=== PATIENT | female | born 1970 | race Caucasian/White ===

== ENCOUNTER 2017-01-25 16:18 | Observation (INO) ==
[2017-01-25] MEDS ORDERED: ZOFRAN IV PRN (16:58)
[2017-01-25] MEDS ORDERED: SODIUM CHLORIDE 0.9% INJ SCH (17:00)
[2017-01-25] MEDS ORDERED: PROTONIX IV SCH (17:00)
[2017-01-25] MEDS: D5 1/2 NS 1,000 ML IV SCH (18:33)
[2017-01-25 18:40] LABS: MANUAL DIFF NEEDED? NO
[2017-01-25 18:57] LABS: BASO% 0.4 % (0.0-0.8); EOS# 0.04 X1000 (0.0-0.7); EOS% 0.8 % (0.0-10.0); HEMATOCRIT 37.9 % (37.0-47.0); HEMOGLOBIN 12.7 g/dL (12.0-16.0); IMM GRAN# 0.02 X1000 (0.0-0.04); IMM GRAN% 0.4 % (0.0-0.5); LYMPH# 1.56 X1000 (1.2-3.4); LYMPH% 32.6 % (20.5-51.1); MCH 30.8 PG (27-31); MCHC 33.5 g/dL (33-37); MCV 91.8 FL (81-99); MONO# 0.39 X1000 (0.11-0.59); MONO% 8.1 % (1.7-9.3); MPV 9.9 FL (7.4-10.4); NEUT% 57.7 % (42.2-75.2); PLT 315 X1000 (130-400); RBC 4.13 XMIL (4.2-5.4)
[2017-01-25 19:10] LABS: AGAP 12; ALBUMIN 4.2 g/dL (3.5-5.0); ALKALINE PHOSPHATASE 39 U/L (32-104); AMYLASE 56 U/L (20-200); BUN 14 mg/dL (8-22); CALCIUM 9.2 mg/dL (8.8-10.2); CHLORIDE 103 mmol/L (98-107); COSMO 278; GOT 18 U/L (10-30); GPT 16 U/L (10-36); POTASSIUM 3.5 mmol/L (3.5-5.1); SODIUM 139 mmol/L (136-145); TCO2 24 mmol/L (25-35); TOTAL BILIRUBIN 0.68 mg/dL (0.20-1.00); TOTAL PROTEIN 7.1 g/dL (6.3-8.3)
[2017-01-25 22:52] LABS: URINE MICRO REVIEW NEEDED? NO; URINE SOURCE CLEAN CATCH
[2017-01-25 22:55] LABS: BILIRUBIN URINE NEGATIVE (NEGATIVE); BLOOD URINE NEGATIVE (NEGATIVE); COLOR YELLOW; GLUCOSE URINE NEGATIVE (NEGATIVE); LEUKOCYTES URINE NEGATIVE (NEGATIVE); NITRITE URINE NEGATIVE (NEGATIVE); PH URINE 5.5; PROTEIN URINE NEGATIVE (NEGATIVE); SP GRAVITY URINE 1.008; TURBIDITY URINE CLEAR (CLEAR); UR EPITHELIAL CELLS <10 /HPF (<10); URINE BACTERIA NEGATIVE /HPF; URINE RBC <10 /HPF (<10); URINE WBC <10 /HPF (<10); UROBILINOGEN URINE NORMAL (NORMAL)
[2017-01-26] MEDS ORDERED: XYLOCAINE-MPF 2% ONE (10:13)
[2017-01-26] MEDS ORDERED: DIPRIVAN 1% ONE ×2 (10:13→10:19)
[2017-01-26] MEDS: D5 1/2 NS 1,000 ML IV SCH ×2 (11:03→12:31)
[2017-01-26 15:16] VITALS: BP 122/62
[2017-01-26] MEDS ORDERED: PERIDEX MT SCH (21:00)
== END 2017-01-26 16:07 | disposition home or self-care (01) ==
LOC: DIRADM → 4N 16:18
PROVIDERS: ADMIT Surgery; ATTEND Surgery